=== PATIENT | female | born 1975 | race Caucasian/White ===

== ENCOUNTER 2024-12-22 13:59 | Emergency (ER) | payer OTHER, BC, MEDICAID ==
[~2024-12-22] VITALS: Ht 154.9 cm; Wt 81.6 kg
[~2024-12-22 13:59] MED LIST: CEPHALEXIN500 M1 PO; SEPTDS PO
[2024-12-22] MEDS ORDERED: Tdap Vaccine 0.5 ML SYR (Adult Vaccine) IM ONE (14:05)
[2024-12-22] MEDS ORDERED: PERCOCET 5-3251 EACH PO (16:54)
== END 2024-12-22 17:07 | disposition home or self-care (01) ==
LOC: ED 13:59
DX: S92.351A Displaced fracture of fifth metatarsal bone, right foot, initial encounter for closed fracture (principal); G43.909 Migraine, unspecified, not intractable, without status migrainosus; Z79.899 Other long term (current) drug therapy; V47.5XXA Car driver injured in collision with fixed or stationary object in traffic accident, initial encounter; Y93.89 Activity, other specified; Y92.488 Other paved roadways as the place of occurrence of the external cause; Y99.8 Other external cause status